=== PATIENT | male | born 1930 | race Two or more races ===

== ENCOUNTER → 2016-07-30 | Outpatient (CLI) | payer MEDICARE, OTHER ==
--- NOTE | 2016-07-30 11:26 | RADRPT ---
PROCEDURE: XR pelvis/right hip. CLINICAL INDICATION: Hip pain TECHNIQUE: AP pelvis/lateral right hip view performed. 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 There is no evidence of loosening of the prosthesis. 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 There is mild left hip osteoarthrosis. This is associated with joint space narrowing, subchondral sc lerosis and osteophytosis. There is normal osseous mineralization. No fractures or osseous lesions are identified. The soft tissues are unremarkable. IMPRESSION: Right total hip replacement. Mild left hip osteoarthrosis. RPTAT: HGDB .Jason Rodriguez MD, MD Date Time Electronically viewed and signed by .Jason Rodriguez MD, on 07/30/2016 11:25 .B/
== END | disposition home or self-care (01) ==
LOC: HKI 10:20
PROVIDERS: ATTEND Orthopaedic Surgery
DX: M51.36 Other intervertebral disc degeneration, lumbar region (principal); M54.16 Radiculopathy, lumbar region; Z96.641 Presence of right artificial hip joint
CPT/HCPCS: 73502; G0463

== ENCOUNTER → 2016-10-25 | Outpatient (CLI) | payer MEDICARE, OTHER ==
--- NOTE | 2016-10-26 13:57 | RADRPT ---
PROCEDURE: XR Right hip and pelvis. CLINICAL INDICATION: Right hip pain. Pelvic pain. Postop. TECHNIQUE: Three views. Frontal pelvis. Frontal and lateral right hip. COMPARISON: 07/30/2016. FINDINGS: There is no fracture or dislocation. Vascular calcifications are present consistent with atherosclerosis. There is a right hip total arthroplasty which appears satisfactory. There are mild degenerative changes of the left hip with osteophytes noted. There are degenerative changes of the lower lumbar spine. There is no lytic or blastic lesion. The sacroiliac joints are grossly normal. IMPRESSION: 1. Satisfactory postoperative appearance of the right hip. 2. Mild degenerative changes of the left hip. 3. Atherosclerosis. RPTAT: QQ .Gregg Mistry MD, MD Date Time Electronically viewed and signed by .Gregg Mistry MD, on 10/26/2016 13:57 .R/
== END | disposition home or self-care (01) ==
LOC: HKI 13:28
PROVIDERS: ATTEND Orthopaedic Surgery
DX: M25.551 Pain in right hip (principal); M70.61 Trochanteric bursitis, right hip; M54.16 Radiculopathy, lumbar region; M51.36 Other intervertebral disc degeneration, lumbar region; Z96.641 Presence of right artificial hip joint
CPT/HCPCS: 20610; 73502; G0463; J1030